=== PATIENT | male | born 1975 | race African-American/Black ===

== ENCOUNTER 2017-01-28 14:56 | Emergency (ER) | payer MEDICAID ==
--- NOTE | ~2017-01-28 | CR63 ---
[facility] A Service of [facility] RADIOLOGY TEXT RESULTS PATIENT: BERENICE MORALES LOCATION: [facility] : 79 UNIT #: [id number] AGE: [address]: TAI PACHECO SEX: M ORDER DR: [id number] [facility] [address] [place], [place] [address] [id number] E MR#: [id number] #: [id number] NAME: BERENICE MORALES : 1975 SEX: M STUDY DATE/TIME: 01/28/2017 17:10 UNIT: [facility] ROOM: STUDY DESCRIPTION: CR Chest 2 View Attending Physician: Tai Pacheco Aprn Ordering Physician: Tai Pacheco Aprn Primary Care Physician: No Primary Care Physician MEDICAL IMAGING REPORT This report is preliminary unless electronic signature is present EXAM PA and lateral chest HISTORY Chest pain. Cough 3 days. FINDINGS 2 views of the chest demonstrate the cardiac size and pulmonary vascularity are normal. No infiltrates or effusions. IMPRESSION Negative Dictated by... Hilton Salvador M.D. THIS IS AN ELECTRONICALLY VERIFIED REPORT Hilton Salvador M.D. at 01/28/2017 11:11 PM DFL/rnr TD: 01/28/2017 21:38 JOB #: [id number] MEDICAL IMAGING REPORT Page 1 of 1 COPY
--- NOTE | ~2017-01-28 | EKG ---
PATIENT: BERENICE MORALES UNIT #: [id number] Ventricular Rate: 74 BPM Atrial Rate: 74 BPM P-R Interval: 160 ms QRS Duration: 104 ms Q-T Interval: 406 ms QTC Calculation(Bezet): 450 ms P [place]: 46 degrees Calculated R [place]: -2 degrees Calculated T [place]: 4 degrees Diagnosis Line: Normal sinus rhythm Diagnosis Line: Minimal voltage criteria for LVH, may be normal Diagnosis Line: variant Diagnosis Line: Borderline ECG Diagnosis Line: No previous ECGs available Diagnosis Line: Confirmed by EMIL HELLER MD ([id number]) on 01/30/2017 Diagnosis Line: 4:28:15 PM INTERPRETING MD: ARRON BELLO
[2017-01-28 17:19] LABS: URINE SOURCE CLEAN CATCH
[2017-01-28 17:28] LABS: POC - CKMB 2.3 ng/mL (0.0-7.9); POC - TROPONIN <0.05 ng/mL (<=0.05)
[2017-01-28 17:29] LABS: URINE APPEARANCE CLEAR; URINE BILIRUBIN NEG (NEG); URINE BLOOD NEG (NEG); URINE COLOR YELLOW; URINE GLUCOSE NEG (NEG); URINE KETONE NEG (NEG); URINE LEUKOCYTE ESTERASE 1+ (NEG); URINE NITRATE NEG (NEG); URINE PROTEIN NEG (NEG); URINE SPECIFIC GRAVITY 1.026 (1.003-1.035)
[2017-01-28 17:31] LABS: CULTURE INDICATED? YES; URBCS1 AUWI 0-2 /[HPF] (0-2); URINE BACTERIA AUWI NEG (NEGATIVE); URINE SQUAMOUS EPITHELIAL CELL NONE SEEN /[HPF]; UWBCS1 AUWI 25-50 (0-5)
== END 2017-01-28 18:34 | disposition home or self-care (01) ==
LOC: CED 14:56 → CFTX 14:56
PROVIDERS: Nurse Practitioner Family
DX: R07.9 Chest pain, unspecified (principal); R05 Cough; M54.9 Dorsalgia, unspecified; F17.210 Nicotine dependence, cigarettes, uncomplicated
CPT/HCPCS: 71020; 81003; 82553; 82947; 84484; 87086; 93005; 99284